=== PATIENT | female | born 1935 | race Caucasian/White ===

== ENCOUNTER → 2019-05-21 | Outpatient (CLI) | payer MEDICARE ==
[~2019-05-21] MED LIST: ASPI81CH PO; CYAN500 PO; Crutch1 EACH MISC; HYDR1TAB94 PO; Norco 5-325 Ta1 EACH PO
== END | disposition home or self-care (01) ==
LOC: PLD 15:09 → LAB SHORT 15:09
DX: D22.0 Melanocytic nevi of lip (principal)
CPT/HCPCS: 88305

== ENCOUNTER → 2019-12-02 | Outpatient (CLI) | payer MEDICARE ==
[~2019-12-02] MED LIST changes: +CEPH500 PO; +ONDA4ODT MM
== END | disposition home or self-care (01) ==
LOC: PLD 11:26 → LAB SHORT 11:26
DX: R23.4 Changes in skin texture (principal); L85.9 Epidermal thickening, unspecified
CPT/HCPCS: 88305